=== PATIENT | male | born 1995 | race Caucasian/White ===

== ENCOUNTER 2018-08-04 21:49 | Emergency (ER) | payer MEDICAID ==
[~2018-08-04] VITALS: Ht 180.3 cm; Wt 81.6 kg
[2018-08-04 22:00] VITALS: BP 136/88
--- NOTE | 2018-08-04 22:02 | NUR ---
PT AMBULATORY TO ER LOBBY W/ STEADY GAIT IN STABLE CONDITION.
--- NOTE | 2018-08-04 22:20 | NUR ---
PT TAKEN TO BED 3
--- NOTE | 2018-08-04 22:21 | NUR ---
CAME IN WITH C/O RT UPPER DENTAL WITH GUMS SWELLING SINCE YESTERDAY
--- NOTE | 2018-08-05 | NUR ---
Dr. Hammer evaluating patient at bedside.
[2018-08-05] MEDS ORDERED: MORPHINE SULFATE 4 MG/ML SYR IM ONE (00:05)
[2018-08-05 01:23] VITALS: BP 129/73
--- NOTE | 2018-08-05 01:23 | NUR ---
Patient discharged with v/s stable. Written and verbal after care instructions given and explained. Patient alert, oriented and verbalized understanding of instructions. Ambulatory with steady gait. All questions addressed prior to discharge. ID band removed. Patient advised to follow up with PMD. Rx of PENICILLIN, MOTRIN, AND NORCO given. Patient educated on indication of medication including possible reaction and side effects. Opportunity to ask questions provided and answered.
== END 2018-08-05 01:23 | disposition home or self-care (01) ==
LOC: MED 21:49
DX: K04.7 Periapical abscess without sinus (principal); J45.909 Unspecified asthma, uncomplicated
CPT/HCPCS: 96372; 99283; J2270